=== PATIENT | female | born 1985 | race African-American/Black ===

== ENCOUNTER 2018-11-29 05:44 | Inpatient (IN) ==
--- NOTE | 2018-11-16 10:11 | PAT Medication Instructions ---
Medication Instructions Date of Service November 16, 2018 Home Medications PNV cmb#95-ferrous fumarate-FA [] 1 tab PO DAILY ondansetron HCl [Zofran] 4 mg PO TID PRN valacyclovir [Valtrex] 500 mg PO DAILY DO NOT take the morning of surgery PNV cmb#95-ferrous fumarate-FA [] 1 tab PO DAILY Take morning of surgery With a small sip of water, OTHERWISE NOTHING TO EAT OR DRINK AFTER MIDNIGHT: ondansetron HCl [Zofran] 4 mg PO TID PRN (if needed) valacyclovir [Valtrex] 500 mg PO DAILY Other Notes If you have any questions please call us at [phone] or [phone] or [phone] or [phone]
--- NOTE | 2018-11-16 11:45 | Anesthesiology Consultation ---
Date of Service November 16, 2018 Assessment & Plan (1) Encounter for pre-operative examination: Chart Review Chart Review: Acceptable Risk for Surgery and Patient seen in Pre Admission Testing Teaching & Discussion Pre-Anesthesia Teaching/Discussion Notes: Instructed NPO after midnight before surgery,except medications with 15 cc of water. Medication instructions provided according to the PAT guidelines. History Surgery Operation Date: 11/29/18 07:30 Proposed Procedures p Section in - Ankur Arelis Carter MD Height/Weight Height: 5 ft 4.25 in Weight: 133.2 kg Allergies Allergy/AdvReac Type Severity Reaction Status Date / Time Penicillins Allergy Severe RASH Verified 11/16/18 11:55 Medications Home Medications Medication Instructions Recorded Confirmed Last Taken PNV cmb#95-ferrous fumarate-FA 1 tab PO DAILY 10/19/18 11/16/18 10/17/18 08:00 [] ondansetron HCl [Zofran] 4 mg PO TID PRN 10/19/18 11/16/18 10/17/18 08:00 valacyclovir [Valtrex] 500 mg PO DAILY 11/16/18 11/16/18 Unknown Past Medical History Medical History Acute bacterial meningitis 1+ years ago; received spinal tap- treated with abx; resolved without issue Anxiety Depression Genital herpes no current outbreak; on valtrex Morbid obesity Exercise / Class Metabolic Activity III < 4 Walking/Shop/Light housework Past Family History Family History Aunt FHx: lung cancer FHx: breast cancer Past Surgical History Surgical History History of section 2003 c/s (failure to progress) 2011 c/s (repeat c/s; twins): SAB (good pain control) Past Anesthesia History No Hx of Anesthesia Complications and No Family Hx of Anesthesia Complications History of PONV No Hx of PONV and No Hx of Motion Sickness Social History Smoking Status: Current every day smoker tobacco type: cigarettes Smoking cigarettes per day: 3-5 CIGARETTES DAILY; TOTAL USE X 13 YEARS Do You Dip or Chew Tobacco: No Hx Alcohol Use: No Hx Substance Use: Yes substance use type: marijuana Last Used Substance Other:: MARIJUANA (INHALATION) 6 MONTHS AGO Review of Systems Reflux/LBP with related. Patient denies chest pain, shortness of breath, cough, wheezing, palpitations. Physical Exam Vital Signs VITALS BP 115/76 P 94 TEMP 98.1 SP02 96%RA RESP 18 PHYSICAL Full neck and c-spine range of motion. Full TMJ range of motion. TMD 4 finger breaths Mallampati Score 3 Dentition: chipped molar, missing molars Lungs: clear throughout to auscultation Cardiac: regular rate and rhythm, no murmurs noted Spine: normal Carotid arteries: negative bruit Extremities: B/L LE trace non-pitting edema Large tongue Testing Laboratory Results 11/16/18 12:10 11/16/18 12:10 PT 9.8 Seconds (9.0-12.0) 11/16/18 12:10 INR 1.0 (0.9-1.1) 11/16/18 12:10 APTT 29.7 Seconds (21.0-31.0) 11/16/18 12:10 Blood Type O Positive 11/16/18 12:10 Antibody Screen NEGATIVE 11/16/18 12:10
--- NOTE | 2018-11-16 12:31 | History and Physical Report ---
DATE OF ADMISSION: 11/29/2018 CHIEF COMPLAINT: Two previous sections and thin lower uterine segment on previous OP note. HISTORY OF PRESENT ILLNESS: The patient is a 32-year-old 3, para 3. She has 1 spontaneous AB, 1 set of twins. Her first was a madrigal at term. She had an arrest of labor secondary to cephalopelvic disproportion. Her second through a midline incision for twins at 39 weeks. Review of the operative notes revealed that at the time of for twins, the lower uterine segment was very thin and was repaired at the time of surgery, it was felt not to be a candidate for back. Also at 39 weeks, her cervix is posterior, closed, firm, uneffaced. Presently being scheduled for repeat section. The patient requested that we go through the midline incision. PAST MEDICAL HISTORY: Three children in good health, 2 girls and a boy. ALLERGIES: SHE IS ALLERGIC TO PENICILLIN THAT GIVES HER HIVES. PAST SURGICAL HISTORY: She has had 2 C-sections in the past. MEDICAL HISTORY: She is on Valtrex 500 mg twice a day for history of herpes. SOCIAL HISTORY: No smoking, no alcohol intake. She works at the [employer]. FAMILY HISTORY: Mom is 47, in good health. Father 47, in good health. One brother and one sister in good health. REVIEW OF SYSTEMS: HEAD: No symptoms of frequent or severe headaches. EYES: No symptoms of blurred vision, double vision. EARS: No symptoms of frequent ear infections, difficulty hearing. PHYSICAL EXAMINATION: GENERAL: Well-developed, well-nourished 32-year-old black female, alert, oriented x3 and cooperative in no acute distress, appeared her stated age. EYES: Conjunctivae are pink. Sclerae white, no evidence of jaundice. EARS: Had normal light reflex bilaterally. NOSE: Had normal mucosa. Septum is midline. There were no polyps. THROAT: No erythema or evidence of infection. Teeth are in good state of repair. CHEST: Clear to auscultation and percussion. HEART: Had regular rhythm. S1, S2 were normal. ABDOMEN: Revealed a well-healed midline scar and a well-healed Pfannenstiel scar and a size consistent with a normal size to macrosomic size infant. heart tones were palpable. There was no CVA tenderness. MUSCULOSKELETAL: No calf tenderness. PELVIC: Revealed vertex presentation, floating. Cervix was posterior, firm, closed, and uneffaced. IMPRESSIONS OF THIS CASE: History of 1 for cephalopelvic disproportion, history of for twins, history of a thin lower uterine segment on previous operative notation and intrauterine , 39 weeks gestation for repeat section.
[2018-11-16 13:53] LABS: Basophils # (auto) 0.01 K/uL (0-0.2); Basophils % (auto) 0.1 %; Eosinophils # (auto) 0.05 K/uL (0-0.5); Eosinophils % (auto) 0.7 %; Hematocrit (blood only) 34.2 % (37-47); Hemoglobin 11.8 g/dL (12.0-16.0); Immature Granulocytes # (auto) 0.02 K/uL (0.00-0.02); Immature Granulocytes % (auto) 0.3 %; Lymphocytes # (auto) 1.56 K/uL (1.2-3.4); Lymphocytes % (auto) 21.5 %; Mean Corpuscular Hgb Conc 34.5 g/dL (32-36); Mean Corpuscular Volume 82.6 fL (80-100); Mean Platelet Volume 8.6 fL (7.4-10.4); Monocytes # (auto) 0.57 K/uL (0.11-0.59); Monocytes % (auto) 7.8 %; Neutrophils # (auto) 5.06 K/uL (1.4-6.5); Neutrophils % (auto) 69.6 %; Platelet Count 235 K/uL (130-400); RDW Standard Deviation 41.9 fL (36.4-46.3); Red Blood Count 4.14 M/uL (4.2-5.4); White Blood Count 7.27 K/uL (4.8-10.8)
[2018-11-16 14:06] LABS: Partial Thromboplastin Ratio 1.1; Partial Thromboplastin Time 29.7 Seconds (21.0-31.0); Prothrombin Time 9.8 Seconds (9.0-12.0)
[2018-11-16 14:11] LABS: Potassium 3.8 mmol/L (3.5-5.1)
[2018-11-16 14:19] LABS: BUN Creatinine Ratio 3.3 (10-20); Calcium 9.3 mg/dl (8.5-10.1); Est GFR (African American) 115.6; Est GFR (Non-African American) 99.8
[2018-11-29] MEDS ORDERED: SODIUM CHLORIDE 0.9% 250 ML IV PRN (05:50)
[2018-11-29] MEDS ORDERED: LACTATED RINGER'S 1,000 ML IV SCH ×4 (06:00→10:00)
[2018-11-29] MEDS ORDERED: CITRIC ACID/SODIUM CITRATE 15 ML UDC PO SCH ×2 (06:00)
[2018-11-29] MEDS ORDERED: cefOXitin 2,000 MG in DEXTROSE 5% 50 ML IV SCH (06:00)
[2018-11-29 06:15] LABS: Basophils # (auto) 0.01 K/uL (0-0.2); Basophils % (auto) 0.1 %; Eosinophils # (auto) 0.05 K/uL (0-0.5); Eosinophils % (auto) 0.7 %; Hematocrit (blood only) 34.3 % (37-47); Hemoglobin 11.9 g/dL (12.0-16.0); Immature Granulocytes # (auto) 0.01 K/uL (0.00-0.02); Immature Granulocytes % (auto) 0.1 %; Lymphocytes # (auto) 2.09 K/uL (1.2-3.4); Mean Corpuscular Volume 80.5 fL (80-100); Mean Platelet Volume 8.6 fL (7.4-10.4); Monocytes # (auto) 0.55 K/uL (0.11-0.59); Monocytes % (auto) 8.2 %; Neutrophils # (auto) 4.03 K/uL (1.4-6.5); Neutrophils % (auto) 59.9 %; Platelet Count 203 K/uL (130-400); RDW Coefficient of Variation 14.4 % (11.5-14.5); Red Blood Count 4.26 M/uL (4.2-5.4); White Blood Count 6.74 K/uL (4.8-10.8)
[2018-11-29 06:23] LABS: Mean Corpuscular Hgb Conc 34.7 g/dL (32-36)
[2018-11-29 06:24] LABS: INR 0.9 (0.9-1.1); Partial Thromboplastin Time 28.3 Seconds (21.0-31.0); Prothrombin Time 9.5 Seconds (9.0-12.0)
[2018-11-29 06:31] LABS: Calcium 9.1 mg/dl (8.5-10.1); Creatinine Clr Calc Pharmacy 156.3 ml/min; Est GFR (African American) 128.4; Est GFR (Non-African American) 110.8; Potassium 3.7 mmol/L (3.5-5.1)
--- NOTE | 2018-11-29 07:20 | History & Physical Bridge Note ---
Date of Service November 29, 2018 History & Physical Bridge Note I have examined the patient, reviewed the History & Physical and in the interval since the performance of the History & Physical I have noted the following changes of clinical significance: no changes noted
[2018-11-29] MEDS ORDERED: MoRPHine SULFATE PF 1 MG/ML 10 ML AMP/VIAL ONE (07:34)
[2018-11-29] MEDS ORDERED: MEPERIDINE HCL 25 MG/ML CARP IV PRN (08:54)
[2018-11-29] MEDS ORDERED: LACTATED RINGER'S 500 ML IV PRN (08:54)
[2018-11-29] MEDS ORDERED: NALOXONE HCL 0.4 MG/1 ML VIAL/CARP IV PRN (08:54)
[2018-11-29] MEDS ORDERED: ONDANSETRON INJ 2 MG/ML 2 ML VIAL IV PRN (08:54)
[2018-11-29] MEDS ORDERED: MoRPHine SULFATE PF 1 MG/ML 10 ML AMP/VIAL INT SPINAL ONE (08:54)
[2018-11-29] MEDS ORDERED: MoRPHine SULFATE 2 MG/ML CARP IV PRN (08:54)
[2018-11-29] MEDS ORDERED: PROMETHAZINE HCL 25 MG in SODIUM CHLORIDE 0.9% 50 ML IV PRN (08:54)
[2018-11-29] MEDS ORDERED: NALOXONE HCL 1 MG in SODIUM CHLORIDE 0.9% 1000ML 1,000 ML IV PRN (08:54)
[2018-11-29] MEDS ORDERED: HYDROmorphone INJ 0.5 MG/0.5 ML SYR IV PRN (08:54)
[2018-11-29] MEDS ORDERED: NALOXONE HCL 0.08 MG in SYRINGE 1.8 ML IV PRN (08:54)
[2018-11-29] MEDS ORDERED: NALBUPHINE HCL INJ 10 MG/ML AMP IV PRN (08:54)
[2018-11-29] MEDS ORDERED: ePHEDrine sulfate 50 MG/ML AMP IV PRN (08:54)
[2018-11-29] MEDS ORDERED: DC INTRASPINAL MORPHINE SCH (09:00)
[2018-11-29] MEDS ORDERED: SODIUM CHLORIDE 0.9% 1000ML 1,000 ML IV SCH (09:00)
[2018-11-29] MEDS ORDERED: NO NARCOTICS OR SEDATIVES SCH (09:00)
[2018-11-29] MEDS ORDERED: LIDOCAINE HCL 2% MPF (LOCAL) 5 ML VIAL INFIL ONE (09:01)
[2018-11-29] MEDS ORDERED: PHENYLEPHRINE 100MCG/ML 5ML SYR ONE (09:02)
[2018-11-29] MEDS ORDERED: OXYTOCIN 10 UNITS/ML VIAL ONE (09:02)
[2018-11-29] MEDS ORDERED: SUPERCREAM 0.870% 15 GM JAR EXT PRN (09:25)
[2018-11-29] MEDS ORDERED: BENZOCAINE 20% AER SPR 82.5 GM CAN EXT PRN (09:25)
[2018-11-29] MEDS ORDERED: MAGNESIUM HYDROXIDE SUSP 30 ML UDC PO PRN (09:25)
[2018-11-29] MEDS ORDERED: DIPHTHERIA/TETANUS/PERTUSSIS 0.5 ML SYR/VIAL IM ONE (09:25)
[2018-11-29] MEDS ORDERED: SENNA 8.6 MG TAB PO PRN (09:25)
[2018-11-29] MEDS ORDERED: HYDROCORTISONE ACETATE 25 MG SUPP PR PRN (09:25)
--- NOTE | 2018-11-29 09:25 | Post Operative Brief Note ---
Immediate Post Op Note v1 Date of Surgery November 29, 2018 Pre & Post Diagnosis Operation Date: 11/29/18 07:30 Pre-Op Diagnosis: 1. 39 weeks 2. Previous section with a thin lower uterine segment per previous OP note. 3. Desires repeat section. Post-Op Diagnosis: same Procedure Operation Date: 11/29/18 07:30 Actual Procedures p Section in LD(Not Applicable) - Ankur Carter MD Surgeon Ankur Carter MD Foam Molder Dr Barr Estimated Blood Loss 600 Findings Consistent with Post-Op Diagnosis Fluids 1200 ml Drains Batres Catheter Anesthesia Type MAC Spinal Regional Disposition Accompanied Patient To Recovery: No Disposition: Recovery Room
[2018-11-29] MEDS ORDERED: OXYTOCIN 10 UNITS/ML VIAL IM ONE (09:39)
--- NOTE | 2018-11-29 10:14 | Operative Report ---
DATE OF OPERATION: 11/29/2018 PROCEDURE: Repeat low segment section. INDICATIONS FOR SURGERY: Two previous sections, OP note indicating thin lower uterine segment. PREOPERATIVE DIAGNOSES: 1. Intrauterine at term. 2. Repeat sections. POSTOPERATIVE DIAGNOSES: 1. Intrauterine at term. 2. Repeat sections. 3. Delivered live male . SURGEON: Dr. Carter. PRODUCT SUPPORT SPECIALIST: Dr. Kwok. ESTIMATED BLOOD LOSS: 600 mL. ANESTHESIA: Spinal. OPERATIVE FINDINGS AND PROCEDURE: The patient was brought to the OR table, correctly identified by armband and conversation. Spinal anesthesia was administered. Batres catheter was then inserted aseptically in the bladder, connected to gravity drainage. Following this, compression stockings were applied. Lower uterine segment was painted with an alcohol based sterilizing solution. The patient was then draped in usual sterile fashion, and as per her request, we reopened the midline incision, carried it down to the anterior fascia and excised the fascia down to the pelvic brim and up towards the umbilicus and entered the peritoneum, exposed the lower uterine segment, then made an incision in the lower uterine segment, underlying the bladder, pushed out of the operative field, scored the lower uterine segment with a knife, then entered with scissors. Clear amniotic fluid was seen at this time. A vectis retractor was applied to the fetus's head, and with fundal pressure, the was delivered. Infant was attended to by the salesperson household appliances, Dr. Arroyo who was scrubbed and present at the time of delivery. Cord blood was taken. Placenta was removed manually. Uterus, tubes were brought out through the incision. The lower uterine defect was identified and then closed in layers. The myometrium was approximated with continuous chromic gut suture. The fascial layer was approximated over this with a continuous suture of heavy Vicryl. Then, the vesicouterine fold was restored with a continuous 3-0 chromic. Following this, hemostasis was excellent. The pelvis was cleansed of all blood clots and debris. Uterus, tubes, and ovaries were inspected and found to be normal. Careful anatomical approximation of the anterior abdominal wall was now performed. Peritoneum was closed with a mattress suture of chromic catgut. The fascia was closed with heavy PDS #1 suture anchored at the top of the defect with the knot tied below the fascia. The second anchored at the bottom of the defect with the knot tied below the fascia. Then, we used a continuous running suture of PDS from the bottom up to the middle from the top down to the middle and then tied the 2 sutures to each other. SubQ was approximated with layers of plain after washing the incision clean and the skin edges were approximated with a combination of mattress nylon and enoc. I attest to the content of the Intraoperative Record and any orders documented therein. Any exception s are noted below.
--- NOTE | 2018-11-29 10:43 | Anesthesiology Progress Note ---
Date of Service November 29, 2018 Anesthesia Post Procedure Vital Signs Vital Signs: Temp Pulse Resp BP Pulse Ox 11/29/18 10:39 77 99 11/29/18 10:36 74 143/93 H 11/29/18 10:34 76 99 11/29/18 10:33 20 11/29/18 10:29 82 99 11/29/18 10:24 76 133/61 99 11/29/18 10:23 18 11/29/18 10:19 85 99 11/29/18 10:14 76 131/61 100 11/29/18 10:13 18 11/29/18 10:09 84 99 11/29/18 10:05 86 135/82 11/29/18 10:04 85 99 11/29/18 09:59 88 99 11/29/18 09:55 71 140/68 11/29/18 09:54 74 99 11/29/18 09:53 18 11/29/18 09:49 75 99 11/29/18 09:44 87 200/104 H 97 11/29/18 09:43 20 11/29/18 09:39 94 H 98 11/29/18 09:34 89 98 11/29/18 09:33 36.5 C 96 H 20 130/84 11/29/18 09:29 84 98 11/29/18 05:55 36.9 C 20 11/29/18 05:51 36.9 C 85 20 135/88 11/29/18 05:47 85 135/88 Transfer of Care Handoff Completed per policy Notes Mental Status: alert / awake / arousable and participated in evaluation Patient Amnestic to Procedure: Yes Nausea / Vomiting: adequately controlled Pain: adequately controlled Airway Patency, RR, SpO2: stable & adequate BP & HR: stable & adequate Hydration State: stable & adequate Neuraxial Anesthesia: was administered and sensory block is resolving Anesthetic Complications: no major complications apparent
[2018-11-29] MEDS: KETOROLAC 30 MG/ML VIAL IV PRN ×2 (11:45→19:38)
[2018-11-29] MEDS: OXYTOCIN 20 UNITS in LACTATED RINGER'S 1,000 ML IV SCH ×2 (12:17→20:27)
[2018-11-29] MEDS: DiphenhydrAMINE HCL 50 MG/ML VIAL IV PRN (16:33)
[2018-11-29] MEDS: SIMETHICONE 80 MG CHEW PO SCH (18:31)
[2018-11-30] MEDS: DiphenhydrAMINE HCL 50 MG/ML VIAL IV PRN (00:56)
[2018-11-30] MEDS: KETOROLAC 30 MG/ML VIAL IV PRN (01:27)
[2018-11-30] MEDS ORDERED: ONDANSETRON INJ 2 MG/ML 2 ML VIAL IV PRN (02:54)
[2018-11-30] MEDS ORDERED: PROMETHAZINE HCL 25 MG in SODIUM CHLORIDE 0.9% 50 ML IV PRN (02:54)
[2018-11-30] MEDS ORDERED: DiphenhydrAMINE HCL 50 MG/ML VIAL IV PRN (02:54)
[2018-11-30] MEDS ORDERED: ZOLPIDEM TARTRATE 5 MG TAB PO PRN (02:54)
[2018-11-30] MEDS ORDERED: KETOROLAC 30 MG/ML VIAL IV PRN (02:54)
[2018-11-30] MEDS ORDERED: MEPERIDINE HCL 50 MG/ML CARP IV PRN (02:54)
[2018-11-30] MEDS: IBUPROFEN 600 MG TAB PO PRN ×5 (03:38→21:58)
[2018-11-30] MEDS: OXYCODONE/ACETAMINOPHEN 5mg/325mg TAB PO PRN ×6 (03:39→21:58)
[2018-11-30 06:13] LABS: Basophils # (auto) 0.02 K/uL (0-0.2); Basophils % (auto) 0.3 %; Eosinophils # (auto) 0.09 K/uL (0-0.5); Eosinophils % (auto) 1.4 %; Hematocrit (blood only) 31.3 % (37-47); Hemoglobin 10.5 g/dL (12.0-16.0); Immature Granulocytes # (auto) 0.01 K/uL (0.00-0.02); Immature Granulocytes % (auto) 0.2 %; Lymphocytes # (auto) 1.59 K/uL (1.2-3.4); Lymphocytes % (auto) 25.3 %; Mean Corpuscular Hgb Conc 33.5 g/dL (32-36); Mean Corpuscular Volume 83.5 fL (80-100); Mean Platelet Volume 7.9 fL (7.4-10.4); Monocytes # (auto) 0.49 K/uL (0.11-0.59); Monocytes % (auto) 7.8 %; Neutrophils # (auto) 4.09 K/uL (1.4-6.5); Platelet Count 172 K/uL (130-400); RDW Coefficient of Variation 14.2 % (11.5-14.5); RDW Standard Deviation 43.1 fL (36.4-46.3); Red Blood Count 3.75 M/uL (4.2-5.4); White Blood Count 6.29 K/uL (4.8-10.8)
[2018-11-30] MEDS: PRENATAL VITAMIN 1 TAB PO SCH (08:00)
[2018-11-30] MEDS: SIMETHICONE 80 MG CHEW PO SCH ×4 (08:00→20:31)
[2018-11-30] MEDS: FERROUS SULFATE 325 MG TAB PO SCH (08:00)
[2018-11-30] MEDS: DOCUSATE SODIUM 100 MG CAP PO SCH ×2 (08:03→20:32)
--- NOTE | 2018-11-30 12:42 | Obstetrical Progress Note ---
Date of Service November 30, 2018 Physical Exam Physical Exam: abdomen soft and non tender bowel sounds present but hypoactive bandage removed incision is clean and dry no calf tenderness ambulating well hgb 10.5 Results & Data Vital Signs (Past 12 Hours) Vital Signs Temp Pulse Resp BP Pulse Ox 11/30/18 07:25 36.7 C 83 18 123/80 98 11/30/18 03:52 36.7 C 89 20 124/88 95 11/30/18 02:33 18 91 11/30/18 01:33 18 94
[2018-11-30] MEDS ORDERED: BISACODYL 5 MG TABEC PO SCH (20:00)
[2018-12-01] MEDS: OXYCODONE/ACETAMINOPHEN 5mg/325mg TAB PO PRN ×4 (07:21→20:45)
[2018-12-01] MEDS: PRENATAL VITAMIN 1 TAB PO SCH (07:22)
[2018-12-01] MEDS: SIMETHICONE 80 MG CHEW PO SCH ×3 (07:22→20:25)
[2018-12-01] MEDS: DOCUSATE SODIUM 100 MG CAP PO SCH ×2 (07:22→20:25)
[2018-12-01] MEDS: FERROUS SULFATE 325 MG TAB PO SCH (07:22)
[2018-12-01] MEDS: IBUPROFEN 600 MG TAB PO PRN ×4 (07:22→20:45)
[2018-12-01 07:41] LABS: Hematocrit (blood only) 34.5 % (37-47); Hemoglobin 11.9 g/dL (12.0-16.0)
--- NOTE | 2018-12-01 08:52 | Obstetrical Progress Note ---
Date of Service December 01, 2018 Physical Exam Physical Exam: abdomen soft and non tender incision is clean and dry vaginal bleeding scant hgb 11.9 no calf tenderness passing flatus ambulating well Results & Data Vital Signs (Past 12 Hours) Vital Signs Temp Pulse Pulse Resp BP Pulse Ox 12/01/18 07:30 36.8 C 93 H 16 121/86 100 11/30/18 23:54 36.5 C 81 18 130/78 96
[2018-12-01] MEDS ORDERED: BISACODYL 10 MG SUPP PR PRN (09:25)
[2018-12-02] MEDS: IBUPROFEN 600 MG TAB PO PRN ×3 (02:57→12:47)
[2018-12-02] MEDS: OXYCODONE/ACETAMINOPHEN 5mg/325mg TAB PO PRN ×3 (02:57→12:47)
[2018-12-02] MEDS: PRENATAL VITAMIN 1 TAB PO SCH (08:20)
[2018-12-02] MEDS: DOCUSATE SODIUM 100 MG CAP PO SCH (08:20)
[2018-12-02] MEDS: FERROUS SULFATE 325 MG TAB PO SCH (08:21)
[2018-12-02] MEDS: SIMETHICONE 80 MG CHEW PO SCH ×2 (08:21→12:47)
--- NOTE | 2018-12-02 09:10 | Obstetrical Progress Note ---
Date of Service December 02, 2018 Physical Exam Physical Exam: abdomen soft and non tender vaginal bleeding scant incision is clean and dry ambulating well pain well controlled Results & Data Vital Signs (Past 12 Hours) Vital Signs Temp Pulse Resp BP 12/02/18 00:30 36.8 C 88 18 120/81
--- NOTE | 2018-12-02 18:52 | Discharge Summary ---
Mrs. Becerra is a 4, para 4. She had a set of twins. She had 2 previous C-sections. She was not a candidate for because a review of her last for twins showed a very thin lower uterine segment. She was brought in at 39 weeks. As per her request, we reopened the midline incision and delivered an through a low segment section. Lower uterine segment at this time appeared to be intact. Infant was delivered without difficulty. She received prophylactic antibiotics. Postoperatively, she did well. It took a little bit over 24 hours for her bowel sounds to return. Her preoperative hemoglobin was 11.8, hematocrit 34.4. Postoperatively, hemoglobin was 11.9, hematocrit 34.5. At the time of discharge, she was ambulating well, eating well. She was afebrile, passing gas. Pain was well controlled with a combination of Percocet and Motrin. She was discharged with instructions to call if she had temperature over 100, if she had any heavy bleeding. Return to the office the following week for removal of enoc.
== END 2018-12-02 15:10 | disposition home or self-care (01) | DRG 788 ==
LOC: 4S1 05:44 → EDSTATUS 07:30 → 4N 12:40